=== PATIENT | female | born 1965 | race Native Hawaiian/Other Pacific Islander ===

== ENCOUNTER 2021-07-07 00:59 | Emergency (ER) | payer OTHER ==
[~2021-07-07] VITALS: Ht 170.2 cm; Wt 62.6 kg
[2021-07-07 01:30] VITALS: BP 147/89; TEMP 98.1
== END 2021-07-07 01:30 | disposition short-term general hospital (02) ==
LOC: ED 00:59
DX: I10 Essential (primary) hypertension (principal); M72.6 Necrotizing fasciitis
CPT/HCPCS: 99282